=== PATIENT | male | born 1995 | race American Indian/Alaskan Native ===

== ENCOUNTER 2017-03-25 14:28 | Emergency (ER) | payer OTHER, MEDICAID ==
[2017-03-25 15:04] LABS: Basophils % (Auto) 0.6 % (0.0-1.8); Eosinophils % (Auto) 0.9 % (0.0-4.3); Hematocrit 48.9 % (35.5-45.6); Hemoglobin 16.3 gm/dl (11.8-15.2); Mean Corpuscular HGB Conc 33 % (32-34); Mean Corpuscular Hemoglobin 30 pg (28-32); Mean Corpuscular Volume 90 fl (84-94); Platelet Count 300 K/mm3 (140-440); Red Blood Count 5.46 M/mm3 (3.65-5.03); Red Cell Distribution Width 13.4 % (13.2-15.2); White Blood Count 6.4 K/mm3 (4.5-11.0)
[2017-03-25 15:06] LABS: Bilirubin,Urine NEG (Negative); Blood,Urine NEG (Negative); Ketones,Urine NEG (Negative); Leukocyte Esterase,Urine NEG (Negative); Mucus,Urine FEW /HPF; Nitrite,Urine NEG (Negative); Protein,Urine <15 mg/dL mg/dL (Negative); Urobilinogen,Urine < 2.0 mg/dL (<2.0)
[2017-03-25 15:08] LABS: WBC,Urine < 1.0 /HPF (0.0-6.0)
[2017-03-25 15:13] LABS: Anion Gap 24 mmol/L; BUN/Creatinine Ratio 11.81; Blood Urea Nitrogen 13 mg/dL (9-20); Calcium 9.7 mg/dL (8.4-10.2); Carbon Dioxide 23 mmol/L (22-30); Chloride 88.9 mmol/L (98-107); Potassium 4.7 mmol/L (3.6-5.0); Sodium 131 mmol/L (137-145)
[2017-03-25 15:16] LABS: Glucose 667 mg/dL (75-100)
[2017-03-25] MEDS ORDERED: NACL 0.9% 1000 ML 1,000 ML ONE (15:45)
[2017-03-25] MEDS ORDERED: NACL 0.9% 1000 ML 1,000 ML IV ONE (15:49)
[2017-03-25] MEDS ORDERED: LACTATED RINGERS 1,000 ML IV ONE ×3 (16:33→18:45)
--- NOTE | 2017-03-25 16:45 | Emergency Department Report ---
ED General Adult HPI - General Chief complaint: Hyperglycemia Stated complaint: DIABETIC Time Seen by Provider: 03/25/17 16:33 Source: patient Mode of arrival: Ambulatory Limitations: No Limitations - History of Present Illness Initial comments: Patient is a 21-year-old male past medical history of type 1 diabetes who presents with hyperglycemia. Patient states that he ran out of his Lantus insulin 1 month ago due to insurance issues. Patient is not having any nausea, vomiting, headache or vision changes. Patient reports that he was brought to the ER because he went to the PCP today and he is blood sugar was 458 and he was sent to the ER for further management. Patient denies having any medical complaints. - Related Data Allergies Allergy/AdvReac Type Severity Reaction Status Date / Time No Known Allergies Allergy Unverified 03/25/17 14:31 ED Review of Systems ROS: Stated complaint: DIABETIC Other details as noted in HPI Constitutional: denies: chills, fever Eyes: denies: eye pain, eye discharge, vision change ENT: denies: ear pain, throat pain Respiratory: denies: cough, shortness of breath, wheezing Cardiovascular: denies: chest pain, palpitations Endocrine: no symptoms reported Gastrointestinal: denies: abdominal pain, nausea, diarrhea Genitourinary: denies: urgency, dysuria Musculoskeletal: denies: back pain, joint swelling, arthralgia Skin: denies: rash, lesions Neurological: denies: headache, weakness, paresthesias Psychiatric: denies: anxiety, depression Hematological/Lymphatic: denies: easy bleeding, easy bruising ED Past Medical Hx - Past Medical History Previous Medical History?: Yes Hx Diabetes: Yes (Type 1) - Surgical History Past Surgical History?: No - Social History Smoking Status: Never Smoker Substance Use Type: Alcohol, Prescribed ED Physical Exam - General Limitations: No Limitations General appearance: alert, in no apparent distress - Head Head exam: Present: atraumatic, normocephalic - Eye Eye exam: Present: normal appearance - ENT ENT exam: Present: mucous membranes moist - Neck Neck exam: Present: normal inspection - Respiratory Respiratory exam: Present: normal lung sounds bilaterally. Absent: respiratory distress - Cardiovascular Cardiovascular Exam: Present: regular rate, normal rhythm. Absent: systolic murmur, diastolic murmur, rubs, gallop - GI/Abdominal GI/Abdominal exam: Present: soft, normal bowel sounds - Rectal Rectal exam: Present: deferred - Extremities Exam Extremities exam: Present: normal inspection - Back Exam Back exam: Present: normal inspection - Neurological Exam Neurological exam: Present: alert, oriented X3 - Psychiatric Psychiatric exam: Present: normal affect, normal mood - Skin Skin exam: Present: warm, dry, intact, normal color. Absent: rash ED Course Vital Signs 03/25/17 03/25/17 03/25/17 14:31 15:51 18:35 Temperature 98.2 F Pulse Rate 81 86 Respiratory 18 18 16 Rate Blood Pressure 122/79 Blood Pressure 120/79 [Left] O2 Sat by Pulse 100 100 99 Oximetry 03/25/17 03/25/17 03/25/17 19:13 19:20 19:35 Temperature 98.3 F Pulse Rate 66 Respiratory 16 Rate Blood Pressure Blood Pressure 113/62 [Left] O2 Sat by Pulse 100 100 100 Oximetry - Reevaluation(s) Reevaluation #1: 03/25/17 16:46 Patient is given IV fluids he denies having any nausea or vomiting. When corrected we'll send patient home. Reevaluation #2: 03/25/17 18:13 Patient's blood sugar is over 500 despite having 3 L of fluid will give patient 10 units of normal saline. Reevaluation #3: 03/25/17 20:03 Patient's blood sugars in the 200s patient has no medical complaints we'll send patient home for follow-up to control his diabetes. ED Medical Decision Making - Lab Data Result diagrams: 03/25/17 14:41 03/25/17 14:41 Laboratory Results - last 24 hr 03/25/17 03/25/17 03/25/17 14:41 14:41 14:41 WBC 6.4 RBC 5.46 H Hgb 16.3 H Hct 48.9 H MCV 90 MCH 30 MCHC 33 RDW 13.4 Plt Count 300 Lymph % (Auto) 29.1 [place] % (Auto) 6.1 Eos % (Auto) 0.9 Baso % (Auto) 0.6 Lymph # 1.9 [place] # 0.4 Eos # 0.1 Baso # 0.0 Seg Neutrophils % 63.3 Seg Neutrophils # 4.1 VBG pH 7.326 Sodium 131 L Potassium 4.7 Chloride 88.9 L Carbon Dioxide 23 Anion Gap 24 BUN 13 Creatinine 1.1 Estimated GFR > 60 BUN/Creatinine Ratio 11.81 Glucose 667 H* Calcium 9.7 Urine Color Urine Turbidity Urine pH Ur Specific [place] Urine Protein Urine Glucose (UA) Urine Ketones Urine Blood Urine Nitrite Urine Bilirubin Urine Urobilinogen Ur Leukocyte Esterase Urine WBC (Auto) Urine RBC (Auto) U Epithel Cells (Auto) Urine Mucus 03/25/17 14:42 WBC RBC Hgb Hct MCV MCH MCHC RDW Plt Count Lymph % (Auto) [place] % (Auto) Eos % (Auto) Baso % (Auto) Lymph # [place] # Eos # Baso # Seg Neutrophils % Seg Neutrophils # VBG pH Sodium Potassium Chloride Carbon Dioxide Anion Gap BUN Creatinine Estimated GFR BUN/Creatinine Ratio Glucose Calcium Urine Color Colorless Urine Turbidity Clear Urine pH 6.0 Ur Specific [place] 1.027 Urine Protein <15 mg/dl Urine Glucose (UA) >=500 Urine Ketones Neg Urine Blood Neg Urine Nitrite Neg Urine Bilirubin Neg Urine Urobilinogen < 2.0 Ur Leukocyte Esterase Neg Urine WBC (Auto) < 1.0 Urine RBC (Auto) 1.0 U Epithel Cells (Auto) < 1.0 Urine Mucus Few Laboratory Results - last 24 hr 03/25/17 03/25/17 03/25/17 14:41 14:41 14:41 WBC 6.4 RBC 5.46 H Hgb 16.3 H Hct 48.9 H MCV 90 MCH 30 MCHC 33 RDW 13.4 Plt Count 300 Lymph % (Auto) 29.1 [place] % (Auto) 6.1 Eos % (Auto) 0.9 Baso % (Auto) 0.6 Lymph # 1.9 [place] # 0.4 Eos # 0.1 Baso # 0.0 Seg Neutrophils % 63.3 Seg Neutrophils # 4.1 VBG pH 7.326 Sodium 131 L Potassium 4.7 Chloride 88.9 L Carbon Dioxide 23 Anion Gap 24 BUN 13 Creatinine 1.1 Estimated GFR > 60 BUN/Creatinine Ratio 11.81 Glucose 667 H* POC Glucose Calcium 9.7 Urine Color Urine Turbidity Urine pH Ur Specific [place] Urine Protein Urine Glucose (UA) Urine Ketones Urine Blood Urine Nitrite Urine Bilirubin Urine Urobilinogen Ur Leukocyte Esterase Urine WBC (Auto) Urine RBC (Auto) U Epithel Cells (Auto) Urine Mucus 03/25/17 03/25/17 03/25/17 14:42 16:56 18:09 WBC RBC Hgb Hct MCV MCH MCHC RDW Plt Count Lymph % (Auto) [place] % (Auto) Eos % (Auto) Baso % (Auto) Lymph # [place] # Eos # Baso # Seg Neutrophils % Seg Neutrophils # VBG pH Sodium Potassium Chloride Carbon Dioxide Anion Gap BUN Creatinine Estimated GFR BUN/Creatinine Ratio Glucose POC Glucose > 500 H > 500 H Calcium Urine Color Colorless Urine Turbidity Clear Urine pH 6.0 Ur Specific [place] 1.027 Urine Protein <15 mg/dl Urine Glucose (UA) >=500 Urine Ketones Neg Urine Blood Neg Urine Nitrite Neg Urine Bilirubin Neg Urine Urobilinogen < 2.0 Ur Leukocyte Esterase Neg Urine WBC (Auto) < 1.0 Urine RBC (Auto) 1.0 U Epithel Cells (Auto) < 1.0 Urine Mucus Few 03/25/17 03/25/17 18:39 19:56 WBC RBC Hgb Hct MCV MCH MCHC RDW Plt Count Lymph % (Auto) [place] % (Auto) Eos % (Auto) Baso % (Auto) Lymph # [place] # Eos # Baso # Seg Neutrophils % Seg Neutrophils # VBG pH Sodium Potassium Chloride Carbon Dioxide Anion Gap BUN Creatinine Estimated GFR BUN/Creatinine Ratio Glucose POC Glucose 402 H 230 H Calcium Urine Color Urine Turbidity Urine pH Ur Specific [place] Urine Protein Urine Glucose (UA) Urine Ketones Urine Blood Urine Nitrite Urine Bilirubin Urine Urobilinogen Ur Leukocyte Esterase Urine WBC (Auto) Urine RBC (Auto) U Epithel Cells (Auto) Urine Mucus - Medical Decision Making Chief medical diagnosis: Hyperglycemia Differential diagnosis: DKA, HONK, hyperkalemia CBC, CMP, fluids, [id number] glucose, VBG will reevaluate patient. Due to patient's non-acidotic state and reasonable blood sugar with no medical complaints patient has hyperglycemia will get fluids and I will make sure hyperglycemia is well-controlled and will send patient home. Critical care attestation.: If time is entered above; I have spent that time in minutes in the direct care of this critically ill patient, excluding procedure time. ED Disposition Clinical Impression: Hyperglycemia due to type 1 diabetes mellitus Disposition: DC-01 TO HOME OR SELFCARE Is pt being admited?: No Does the pt Need Aspirin: No Condition: Stable Instructions: Diabetic Hyperglycemia (ED) Referrals: PRIMARY CAREMD [Primary Care Provider] - 3-5 Days ELIZABETH GAGNON MD [Staff Physician] - 3-5 Days Time of Disposition: 20:02
[2017-03-25 20:11] VITALS: BP 115/90
== END 2017-03-25 20:33 | disposition home or self-care (01) ==
LOC: ED 14:28
DX: E10.65 Type 1 diabetes mellitus with hyperglycemia (principal)
CPT/HCPCS: 36415; 80048; 81001; 82805; 82962; 85025; 96361; 96374; 99284; J7030; J7120; J1815

== ENCOUNTER 2017-12-06 12:30 | Inpatient (IN) | payer MEDICAID, OTHER ==
[2017-12-06] MEDS ORDERED: ZOFRAN IV ONE ×2 (13:30→15:50)
[2017-12-06] MEDS ORDERED: NACL 0.9% 1000 ML 1,000 ML IV ONE ×3 (13:30→21:27)
[2017-12-06] MEDS ORDERED: TORADOL IV ONE (14:25)
[2017-12-06] MEDS ORDERED: ATIVAN IV ONE (14:26)
--- NOTE | 2017-12-06 14:30 | Emergency Department Report ---
HPI - General Chief Complaint: Abdominal Pain Time Seen by Provider: 12/06/17 13:23 - HPI HPI: The patient is a 21-year-old male who presents for evaluation of abdominal pain. The patient reports upper abdominal pain, crampy in quality, moderate in severity, constant since awakening this morning, 3-4 hours ago. He also reports nausea and multiple episodes of nonbilious, nonbloody emesis. He shares that he consumed a significant amount of alcohol last night. The patient denies fever, chills, night sweats, diarrhea, blood in the stool, dark tarry stool, dysuria, hematuria, flank pain, genital discharge, inability to pass flatus. ED Past Medical Hx - Past Medical History Hx Diabetes: Yes (Type 1) - Social History Smoking Status: Never Smoker Substance Use Type: Alcohol - Medications Home Medications: Home Medications Medication Instructions Recorded Confirmed Last Taken Type Insulin Glargine [Lantus] 24 units SQ QHS #30 vial 03/25/17 Unknown Rx Insulin Glulisine [Apidra] 10 units SQ AC 28 Days units 03/25/17 Unknown Rx ED Review of Systems ROS: Stated complaint: NAUSEA/VOMITING Other details as noted in HPI Constitutional: denies: fever ENT: denies: throat or neck pain Respiratory: denies: cough, shortness of breath Cardiovascular: denies: chest pain Endocrine: denies unexplained weight loss or gain Gastrointestinal: denies: abdominal pain, nausea Genitourinary: denies: dysuria Musculoskeletal: denies: leg swelling Skin: denies: rash Neurological: denies: headache Hematological/Lymphatic: denies: easy bleeding or easy bruising Psych: denies sadness or hopelessness Physical Exam - Physical Exam Vital Signs: Vital Signs 12/06/17 12/06/17 12:33 13:21 Temperature 98 F Pulse Rate 105 H Respiratory 18 16 Rate Blood Pressure 100/58 O2 Sat by Pulse 100 Oximetry Physical Exam: General: well-nourished, well-developed, no acute distress Head: Normocephalic, atraumatic Eyes: normal sclera ENT: Mucous membranes are pale and dry Neck: trachea midline, neck supple, No neck stiffness, no cervical adenopathy Respiratory: Breath sounds equal bilaterally, no wheezing, rales, or rhonchi Cardio: S1 and S2 present, no murmurs, rubs, gallops, capillary refill is delayed Abdomen: Normoactive bowel sounds, soft abdomen, left upper quadrant epigastric tenderness to palpation present, no rigidity, no guarding or rebound tenderness Musc: No pitting edema Skin: No rash Neuro: no facial drooping, normal speech Psych: Normal affect ED Course Vital Signs 12/06/17 12/06/17 12:33 13:21 Temperature 98 F Pulse Rate 105 H Respiratory 18 16 Rate Blood Pressure 100/58 O2 Sat by Pulse 100 Oximetry ED Medical Decision Making - Lab Data Result diagrams: 12/06/17 14:42 12/06/17 15:01 - Medical Decision Making The patient was seen and examined by myself. The patient is placed on a school lunch monitor and continuous pulse ox. On initial evaluation, the patient was found to be in no distress. Evaluation orders are placed. IV access is established and the patient is given 1 L normal saline fluid bolus and Zofran for nausea, and IV analgesic for pain. Lab results revealed elevated blood glucose of 500, increased anion gap of 40, increased potassium of 5.7, and low bicarbonate, consistent with metabolic acidosis secondary to diabetic ketoacidosis. The patient is given additional normal saline fluid boluses and IV insulin infusion for treatment of his DKA and elevated potassium level. Dr. Villagran, the physician on-call for the hospitalist service was contacted. He agreed to admit the patient for further treatment and close monitoring. The ED admit order was placed. The patient was admitted in guarded condition. Critical care attestation.: If time is entered above; I have spent that time in minutes in the direct care of this critically ill patient, excluding procedure time. ED Disposition Clinical Impression: Dehydration, Acute hyperkalemia, Nausea and vomiting in adult, Acute epigastric pain DKA (diabetic ketoacidoses) Qualifiers: Diabetes mellitus type: type 1 Diabetes mellitus complication detail: without coma Qualified Code(s): E10.10 - Type 1 diabetes mellitus with ketoacidosis without coma Disposition: -01 TO HOME OR SELFCARE Is pt being admited?: No Does the pt Need Aspirin: No Condition: Serious Instructions: Diabetic Ketoacidosis (ED) Referrals: PRIMARY CARE, [Primary Care Provider] - 3-5 Days Time of Disposition: 15:51
[2017-12-06 14:53] LABS: Basophils # (Auto) 0.1 K/mm3 (0.0-0.1); Basophils % (Auto) 0.6 % (0.0-1.8); Hematocrit 55.6 % (35.5-45.6); Hemoglobin 18.7 gm/dl (11.8-15.2); Lymphocytes # (Auto) 1.4 K/mm3 (1.2-5.4); Lymphocytes % (Auto) 13.7 % (13.4-35.0); Mean Corpuscular HGB Conc 34 % (32-34); Mean Corpuscular Hemoglobin 30 pg (28-32); Mean Corpuscular Volume 88 fl (84-94); Monocytes # (Auto) 0.3 K/mm3 (0.0-0.8); Monocytes % (Auto) 3.2 % (0.0-7.3); Platelet Count 375 K/mm3 (140-440); Red Blood Count 6.32 M/mm3 (3.65-5.03); Red Cell Distribution Width 13.8 % (13.2-15.2)
[2017-12-06 14:56] LABS: Bilirubin,Urine NEG (Negative); Blood,Urine SM (Negative); Color,Urine Straw (Yellow); Mucus,Urine FEW /HPF; Urobilinogen,Urine < 2.0 mg/dL (<2.0); WBC,Urine < 1.0 /HPF (0.0-6.0)
[2017-12-06 14:57] LABS: RBC,Urine < 1.0 /HPF (0.0-6.0)
[2017-12-06 15:40] LABS: Alanine Aminotransferase 19 units/L (7-56); Albumin 4.7 g/dL (3.9-5); BUN/Creatinine Ratio 18; Blood Urea Nitrogen 27 mg/dL (9-20); Calcium 10.4 mg/dL (8.4-10.2); Hemolysis Index 34; Lipase 15 units/L (13-60)
[2017-12-06] MEDS ORDERED: D50W (25GM) Syringe IV PRN ×2 (15:46→21:27)
[2017-12-06] MEDS ORDERED: HumuLIN R IV ONE (15:47)
[2017-12-06] MEDS ORDERED: HumuLIN R 100 UNITS in NACL 0.9% 99 ML IV SCH ×2 (16:00→22:00)
[2017-12-06] MEDS ORDERED: D5W/0.45% NACL/KCL 20 MEQ 20 MEQ/1,000 ML BAG IV SCH (16:00)
[2017-12-06] MEDS ORDERED: SODIUM BICARBONATE IV ONE (17:00)
[2017-12-06] MEDS ORDERED: NACL 0.9% 1000 ML 1,000 ML ONE (19:16)
[2017-12-06] MEDS ORDERED: MORPHINE IV PRN (21:24)
[2017-12-06] MEDS ORDERED: SODIUM CHLORIDE FLUSH SYRINGE 10 ML IV PRN (21:24)
[2017-12-06] MEDS ORDERED: ZOFRAN IV PRN (21:24)
[2017-12-06] MEDS ORDERED: TYLENOL PO PRN (21:24)
[2017-12-06] MEDS ORDERED: PERCOCET 5/325 PO PRN (21:24)
--- NOTE | 2017-12-06 21:24 | History and Physical Report ---
History of Present Illness Date of examination: 12/06/17 Date of admission: 12/06/2017 Chief complaint: Chief complaint: Feeling weak and nauseous for the last 2 days. Vomited 3-4 times. 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 Patient had a lot of alcohol last night. Patient is also noncompliant because his prescribed Lantus which is very expensive. Also on it. Her vision is also expensive. Patient wants a cheaper alternative. No fever no chills. Slight shortness of breath present. No seizures. - Past Medical History Hx Diabetes: Yes (Type 1) - Social History Smoking Status: Never Smoker Substance Use Type: Alcohol - Medications Home Medications: Home Medications Medication Instructions Recorded Confirmed Last Taken Type Insulin Glargine [Lantus] 24 units SQ QHS #30 vial 03/25/17 Unknown Rx Insulin Glulisine [Apidra] 10 units SQ AC 28 Days units 03/25/17 Unknown Rx Review of Systems ROS: Stated complaint: NAUSEA/VOMITING Other details as noted in HPI Constitutional: denies: fever ENT: denies: throat or neck pain Respiratory: denies: cough, shortness of breath Cardiovascular: denies: chest pain Endocrine: denies unexplained weight loss or gain Gastrointestinal: denies: abdominal pain, nausea Genitourinary: denies: dysuria Musculoskeletal: denies: leg swelling Skin: denies: rash Neurological: denies: headache Hematological/Lymphatic: denies: easy bleeding or easy bruising Psych: denies sadness or hopelessness Medications and Allergies Allergies Allergy/AdvReac Type Severity Reaction Status Date / Time No Known Allergies Allergy Unverified 03/25/17 14:31 Home Medications Medication Instructions Recorded Confirmed Last Taken Type Insulin Glargine [Lantus] 24 units SQ QHS #30 vial 03/25/17 12/06/17 Unknown Rx Insulin Glulisine [Apidra] 10 units SQ AC 28 Days units 03/25/17 12/06/17 Unknown Rx Active Meds: Active Medications Dextrose (D50w (25gm) Syringe) 0 ml IV PRN PRN PRN Reason: Hypoglycemia Potassium Chloride/Dextrose/Sod Cl (D5w/0.45% Nacl/Kcl 20 Meq) 20 meq in 1,000 mls @ 125 mls/hr IV DIRECT CASIMIRO Insulin Human Regular 100 (units/ Sodium Chloride) 100 mls @ 1 mls/hr IV TITR CASIMIRO; Protocol Last Titration: 12/06/17 20:55 Dose: 7 units/hr, 7 mls/hr Exam - Physical Exam Narrative exam: Lying in bed comfortably - Constitutional Vitals: Temp Pulse Resp BP Pulse Ox 98.3 F 86 16 108/63 99 12/06/17 16:30 12/06/17 20:30 12/06/17 20:30 12/06/17 20:30 12/06/17 20:30 General appearance: Present: no acute distress, well-nourished - EENT Eyes: Present: PERRL ENT: hearing intact, clear oral mucosa - Neck Neck: Present: supple, normal ROM - Respiratory Respiratory effort: normal Respiratory: bilateral: CTA - Cardiovascular Heart rate: 90 Rhythm: regular Heart Sounds: Present: S1 & S2. Absent: rub, click - Extremities Extremities: no ischemia, pulses intact, pulses symmetrical, No edema Peripheral Pulses: within normal limits - Abdominal General gastrointestinal: Present: soft, non-tender, non-distended, normal bowel sounds Male genitourinary: Present: normal - Rectal Rectal Exam: deferred - Integumentary Integumentary: Present: clear, warm, dry - Musculoskeletal Musculoskeletal: gait normal, strength equal bilaterally - Psychiatric Psychiatric: appropriate mood/affect, intact judgment & insight - Neurologic Neurologic: CNII-XII intact, moves all extremities - Allied Health Allied health notes reviewed: nursing, case management Results - Labs CBC & Chem 7: 12/06/17 14:42 12/06/17 15:01 Labs: Laboratory Last Values WBC 10.4 K/mm3 (4.5-11.0) 12/06/17 14:42 RBC 6.32 M/mm3 (3.65-5.03) H 12/06/17 14:42 Hgb 18.7 gm/dl (11.8-15.2) H 12/06/17 14:42 Hct 55.6 % (35.5-45.6) H 12/06/17 14:42 MCV 88 fl (84-94) 12/06/17 14:42 MCH 30 pg (28-32) 12/06/17 14:42 MCHC 34 % (32-34) 12/06/17 14:42 RDW 13.8 % (13.2-15.2) 12/06/17 14:42 Plt Count 375 K/mm3 (140-440) 12/06/17 14:42 Lymph % (Auto) 13.7 % (13.4-35.0) 12/06/17 14:42 [place] % (Auto) 3.2 % (0.0-7.3) 12/06/17 14:42 Eos % (Auto) 0.0 % (0.0-4.3) 12/06/17 14:42 Baso % (Auto) 0.6 % (0.0-1.8) 12/06/17 14:42 Lymph # 1.4 K/mm3 (1.2-5.4) 12/06/17 14:42 [place] # 0.3 K/mm3 (0.0-0.8) 12/06/17 14:42 Eos # 0.0 K/mm3 (0.0-0.4) 12/06/17 14:42 Baso # 0.1 K/mm3 (0.0-0.1) 12/06/17 14:42 Seg Neutrophils % 82.5 % (40.0-70.0) H 12/06/17 14:42 Seg Neutrophils # 8.6 K/mm3 (1.8-7.7) H 12/06/17 14:42 VBG pH 7.102 (7.320-7.420) L* 12/06/17 15:53 Sodium 136 mmol/L (137-145) L 12/06/17 15:01 Potassium 5.7 mmol/L (3.6-5.0) H 12/06/17 15:01 Chloride 86.0 mmol/L (98-107) L 12/06/17 15:01 Carbon Dioxide 12 mmol/L (22-30) L 12/06/17 15:01 Anion Gap 44 mmol/L 12/06/17 15:01 BUN 27 mg/dL (9-20) H 12/06/17 15:01 Creatinine 1.5 mg/dL (0.8-1.5) 12/06/17 15:01 Estimated GFR > 60 ml/min 12/06/17 15:01 BUN/Creatinine Ratio 18 % 12/06/17 15:01 Glucose 534 mg/dL (75-100) H* 12/06/17 15:01 POC Glucose 294 (70-105) H 12/06/17 19:56 Calcium 10.4 mg/dL (8.4-10.2) H 12/06/17 15:01 Phosphorus 8.10 mg/dL (2.5-4.5) H 12/06/17 15:53 Magnesium 2.60 mg/dL (1.7-2.3) H 12/06/17 15:53 Total Bilirubin 0.60 mg/dL (0.1-1.2) 12/06/17 15:01 AST 19 units/L (5-40) 12/06/17 15:01 ALT 19 units/L (7-56) 12/06/17 15:01 Alkaline Phosphatase 100 units/L (35-129) 12/06/17 15:01 Total Protein 8.5 g/dL (6.3-8.2) H 12/06/17 15:01 Albumin 4.7 g/dL (3.9-5) 12/06/17 15:01 Albumin/Globulin Ratio 1.2 % 12/06/17 15:01 Lipase 15 units/L (13-60) 12/06/17 15:01 Urine Color Straw (Yellow) 12/06/17 14:42 Urine Turbidity Clear (Clear) 12/06/17 14:42 Urine pH 5.0 (5.0-7.0) 12/06/17 14:42 Ur Specific [place] 1.025 (1.003-1.030) 12/06/17 14:42 Urine Protein 30 mg/dl mg/dL (Negative) 12/06/17 14:42 Urine Glucose (UA) >=500 mg/dL (Negative) 12/06/17 14:42 Urine Ketones 80 mg/dL (Negative) 12/06/17 14:42 Urine Blood Sm (Negative) 12/06/17 14:42 Urine Nitrite Neg (Negative) 12/06/17 14:42 Urine Bilirubin Neg (Negative) 12/06/17 14:42 Urine Urobilinogen < 2.0 mg/dL (<2.0) 12/06/17 14:42 Ur Leukocyte Esterase Neg (Negative) 12/06/17 14:42 Urine WBC (Auto) < 1.0 /HPF (0.0-6.0) 12/06/17 14:42 Urine RBC (Auto) < 1.0 /HPF (0.0-6.0) 12/06/17 14:42 Urine Mucus Few /HPF 12/06/17 14:42 Short CBC 12/06/17 Range/Units 14:42 WBC 10.4 (4.5-11.0) K/mm3 Hgb 18.7 H (11.8-15.2) gm/dl Hct 55.6 H (35.5-45.6) % Plt Count 375 (140-440) K/mm3 BMP 12/06/17 15:01 Sodium 136 L Potassium 5.7 H Chloride 86.0 L Carbon Dioxide 12 L BUN 27 H Creatinine 1.5 Glucose 534 H* Calcium 10.4 H Liver Function 12/06/17 Range/Units 15:01 Total Bilirubin 0.60 (0.1-1.2) mg/dL AST 19 (5-40) units/L ALT 19 (7-56) units/L Alkaline Phosphatase 100 (35-129) units/L Albumin 4.7 (3.9-5) g/dL Urine 12/06/17 Range/Units 14:42 Urine Color Straw (Yellow) Urine pH 5.0 (5.0-7.0) Ur Specific [place] 1.025 (1.003-1.030) Urine Protein 30 mg/dl (Negative) mg/dL Urine Glucose (UA) >=500 (Negative) mg/dL Assessment and Plan Assessment and plan: The high probability of a clinically significant, sudden or life threatening deterioration of the [Pulmonary, cadiac, renal] system(s) required my full and direct attention, intervention and personal management. The aggregate critical care time was [35] minutes. This time is in addition to time spent performing reported procedures but includes the following: [x] Data Review and interpretation [x] Patient assessment and monitoring of vital signs [x] Documentation [x] Medication orders and management Advance Directives: Yes VTE prophylaxis?: Chemical Plan of care discussed with patient/family: Yes - Patient Problems (1) DKA (diabetic ketoacidoses) Current Visit: Yes Status: Acute Qualifiers: Diabetes mellitus type: type 1 Diabetes mellitus complication detail: without coma Qualified Code(s): E10.10 - Type 1 diabetes mellitus with ketoacidosis without coma Plan to address problem: DKA protocol initiated. Patient started on IV insulin. Patient to be switched to NovoLog 70/30 which is available as RELION in [facility] and is about $25 per Vial. Patient did not know that there is Relion and available in [facility]. Patient is noncompliant because of the expense of Lantus and Apidra. Patient to be tried on NovoLog 7030 twice a day and NovoLog before lunch. Check hemoglobin A1c IV fluids for now (2) Acute epigastric pain Current Visit: Yes Status: Acute Plan to address problem: Secondary to gastritis and retching and alcohol IV Protonix initiated (3) Acute hyperkalemia Current Visit: Yes Status: Acute Plan to address problem: Should correct with IV insulin (4) Hyponatremia Current Visit: Yes Status: Acute Plan to address problem: Mild- should correct with lowering of the blood glucose levels (5) DVT prophylaxis Current Visit: Yes Status: Acute Plan to address problem: Heparin subcutaneously And GI prophylaxis with protonix
[2017-12-06] MEDS ORDERED: PROTONIX IV SCH (22:00)
[2017-12-06] MEDS: KCL 10MEQ/100ML 10 MEQ/100 ML BAG IV SCH ×4 (22:02→22:55)
[2017-12-06 22:07] LABS: BUN/Creatinine Ratio 21; Blood Urea Nitrogen 25 mg/dL (9-20); Calcium 7.9 mg/dL (8.4-10.2); Hemolysis Index 4
[2017-12-06] MEDS: KCL 20MEQ/100ML 20 MEQ/100 ML BAG IV SCH ×4 (22:12→22:56)
[2017-12-06] MEDS: SODIUM CHLORIDE FLUSH SYRINGE 10 ML IV SCH (22:12)
[2017-12-06] MEDS: HEPARIN SUB-Q SCH (22:17)
[2017-12-07 00:16] LABS: BUN/Creatinine Ratio 22; Blood Urea Nitrogen 24 mg/dL (9-20); Calcium 7.7 mg/dL (8.4-10.2); Hemolysis Index 13
[2017-12-07] MEDS ORDERED: NACL 0.9% 1000 ML 1,000 ML IV SCH (02:00)
[2017-12-07 04:17] LABS: Basophils # (Auto) 0.1 K/mm3 (0.0-0.1); Basophils % (Auto) 0.6 % (0.0-1.8); Eosinophils % (Auto) 0.3 % (0.0-4.3); Hematocrit 38.7 % (35.5-45.6); Hemoglobin 13.7 gm/dl (11.8-15.2); Lymphocytes # (Auto) 3.9 K/mm3 (1.2-5.4); Lymphocytes % (Auto) 27.5 % (13.4-35.0); Mean Corpuscular HGB Conc 36 % (32-34); Mean Corpuscular Hemoglobin 30 pg (28-32); Mean Corpuscular Volume 85 fl (84-94); Monocytes # (Auto) 1.4 K/mm3 (0.0-0.8); Monocytes % (Auto) 9.7 % (0.0-7.3); Platelet Count 297 K/mm3 (140-440); Red Blood Count 4.56 M/mm3 (3.65-5.03); Red Cell Distribution Width 13.2 % (13.2-15.2)
[2017-12-07 04:48] LABS: Alanine Aminotransferase 12 units/L (7-56); Albumin 3.3 g/dL (3.9-5); BUN/Creatinine Ratio 19; Blood Urea Nitrogen 21 mg/dL (9-20); Calcium 7.9 mg/dL (8.4-10.2); Hemolysis Index 6
--- NOTE | 2017-12-07 07:54 | Progress Note ---
Assessment and Plan Assessment and plan: Diabetic ketoacidosis. Blood glucose was 534 and CO2 was 12 on admission Blood glucose now normal, anion gap closed. Will transfer to med floor. Consistent carb diet, accucheck Q ac and hs, Start Humulin 70/30 bid. Titrate to control Hyperkalemia. Now resolved Hyponatremia. Monitor serial BMP Gastritis with epigastric pain. On Protonix bid DVT prophylaxis with Heparin subcut Full code status. History Interval history: Feels better less weakness nausea vomiting Hospitalist Physical - Physical exam Narrative exam: Gen appearance: Not in acute distress, lying in bed, HEENT:Normocephalic, atraumatic Neck:supple, no JVD Lungs: Clear to auscultation bilaterally, no crackles , no wheeze Heart: S1 and S2 regular, no murmurs, rubs or gallop Abdomen: soft, mild epigastric tender, no rebound,r, non distended, normal bowel sounds Ext: No edema, no clubbing, no cyanosis. Neuro: Awake, alert, oriented x 3. Moves all ext, no focal signs Psych:Normal mood - Constitutional Vitals: Temp Pulse Resp BP Pulse Ox 98.1 F 62 17 105/59 98 12/07/17 07:36 12/07/17 07:11 12/07/17 07:11 12/07/17 07:11 12/07/17 07:11 General appearance: Present: no acute distress, obese Results - Labs CBC & Chem 7: 12/07/17 03:51 12/07/17 09:47 Labs: Laboratory Last Values WBC 14.1 K/mm3 (4.5-11.0) H 12/07/17 03:51 RBC 4.56 M/mm3 (3.65-5.03) 12/07/17 03:51 Hgb 13.7 gm/dl (11.8-15.2) D 12/07/17 03:51 Hct 38.7 % (35.5-45.6) D 12/07/17 03:51 MCV 85 fl (84-94) 12/07/17 03:51 MCH 30 pg (28-32) 12/07/17 03:51 MCHC 36 % (32-34) H 12/07/17 03:51 RDW 13.2 % (13.2-15.2) 12/07/17 03:51 Plt Count 297 K/mm3 (140-440) 12/07/17 03:51 Lymph % (Auto) 27.5 % (13.4-35.0) 12/07/17 03:51 Tripp % (Auto) 9.7 % (0.0-7.3) H 12/07/17 03:51 Eos % (Auto) 0.3 % (0.0-4.3) 12/07/17 03:51 Baso % (Auto) 0.6 % (0.0-1.8) 12/07/17 03:51 Lymph # 3.9 K/mm3 (1.2-5.4) 12/07/17 03:51 Tripp # 1.4 K/mm3 (0.0-0.8) H 12/07/17 03:51 Eos # 0.0 K/mm3 (0.0-0.4) 12/07/17 03:51 Baso # 0.1 K/mm3 (0.0-0.1) 12/07/17 03:51 Seg Neutrophils % 61.9 % (40.0-70.0) 12/07/17 03:51 Seg Neutrophils # 8.7 K/mm3 (1.8-7.7) H 12/07/17 03:51 VBG pH 7.102 (7.320-7.420) L* 12/06/17 15:53 Sodium 133 mmol/L (137-145) L 12/07/17 03:51 Potassium 3.5 mmol/L (3.6-5.0) L 12/07/17 03:51 Chloride 98.7 mmol/L (98-107) 12/07/17 03:51 Carbon Dioxide 23 mmol/L (22-30) 12/07/17 03:51 Anion Gap 15 mmol/L 12/07/17 03:51 BUN 21 mg/dL (9-20) H 12/07/17 03:51 Creatinine 1.1 mg/dL (0.8-1.5) 12/07/17 03:51 Estimated GFR > 60 ml/min 12/07/17 03:51 BUN/Creatinine Ratio 19 % 12/07/17 03:51 Glucose 131 mg/dL (75-100) H 12/07/17 03:51 POC Glucose 91 (70-105) 12/07/17 05:12 Hemoglobin A1c 13.3 % (4-6) H 12/06/17 14:42 Calcium 7.9 mg/dL (8.4-10.2) L 12/07/17 03:51 Phosphorus 3.00 mg/dL (2.5-4.5) D 12/06/17 21:36 Magnesium 2.00 mg/dL (1.7-2.3) 12/06/17 21:36 Total Bilirubin 0.50 mg/dL (0.1-1.2) 12/07/17 03:51 AST 11 units/L (5-40) 12/07/17 03:51 ALT 12 units/L (7-56) 12/07/17 03:51 Alkaline Phosphatase 64 units/L (35-129) 12/07/17 03:51 Total Protein 5.2 g/dL (6.3-8.2) L D 12/07/17 03:51 Albumin 3.3 g/dL (3.9-5) L 12/07/17 03:51 Albumin/Globulin Ratio 1.7 % 12/07/17 03:51 Lipase 15 units/L (13-60) 12/06/17 15:01 Urine Color Straw (Yellow) 12/06/17 14:42 Urine Turbidity Clear (Clear) 12/06/17 14:42 Urine pH 5.0 (5.0-7.0) 12/06/17 14:42 Ur Specific [place] 1.025 (1.003-1.030) 12/06/17 14:42 Urine Protein 30 mg/dl mg/dL (Negative) 12/06/17 14:42 Urine Glucose (UA) >=500 mg/dL (Negative) 12/06/17 14:42 Urine Ketones 80 mg/dL (Negative) 12/06/17 14:42 Urine Blood Sm (Negative) 12/06/17 14:42 Urine Nitrite Neg (Negative) 12/06/17 14:42 Urine Bilirubin Neg (Negative) 12/06/17 14:42 Urine Urobilinogen < 2.0 mg/dL (<2.0) 12/06/17 14:42 Ur Leukocyte Esterase Neg (Negative) 12/06/17 14:42 Urine WBC (Auto) < 1.0 /HPF (0.0-6.0) 12/06/17 14:42 Urine RBC (Auto) < 1.0 /HPF (0.0-6.0) 12/06/17 14:42 Urine Mucus Few /HPF 12/06/17 14:42
[2017-12-07] MEDS: KCL 10MEQ/100ML 10 MEQ/100 ML BAG IV SCH ×3 (07:57→07:59)
[2017-12-07] MEDS: KCL 20MEQ/100ML 20 MEQ/100 ML BAG IV SCH (07:58)
[2017-12-07] MEDS: PROTONIX PO SCH ×2 (09:34→22:10)
[2017-12-07] MEDS: K-DUR PO SCH ×2 (09:34→13:40)
[2017-12-07] MEDS: HEPARIN SUB-Q SCH ×2 (09:34→22:10)
[2017-12-07] MEDS: SODIUM CHLORIDE FLUSH SYRINGE 10 ML IV SCH ×2 (09:39→22:11)
[2017-12-07 10:38] LABS: BUN/Creatinine Ratio 19; Blood Urea Nitrogen 21 mg/dL (9-20); Calcium 7.8 mg/dL (8.4-10.2); Hemolysis Index 9
[2017-12-07] MEDS ORDERED: D50W (25GM) Syringe IV PRN (10:56)
--- NOTE | 2017-12-07 11:21 | Consultation ---
History of Present Illness Consult date: 12/07/17 Requesting physician: SANTIAGO GARCIA Reason for consult: other (Critical care consult for DKA) History of present illness: 21 yo with suboptimal insulin compliance admitted with N/V, abd pain, DKA after consuming large amount of EtOH prior these symptoms. He is back to normal with resolution of all of these symptoms as of this AM. Able to tolerate breakfast. No further N/V. No fevers, chills, chest pain, SOB. Active Medications Acetaminophen (Tylenol) 650 mg PO Q4H PRN PRN Reason: Pain MILD(1-3)/Fever >100.5/MENDEZ Dextrose (D50w (25gm) Syringe) 50 ml IV PRN PRN PRN Reason: Hypoglycemia Heparin Sodium (Porcine) (Heparin) 5,000 unit SUB-Q Q12HR [facility] Last Admin: 12/07/17 09:34 Dose: 5,000 unit Sodium Chloride (Nacl 0.9% 1000 Ml) 1,000 mls @ 125 mls/hr IV DIRECT CASIMIRO Insulin Human Isoph/Insulin Regular (Humulin 70/30) 16 unit SUB-Q BIDDIAB [facility] Last Admin: 12/07/17 09:33 Dose: 16 unit Insulin Human Regular (Humulin R) 0 units SUB-Q ACHS [facility]; Protocol Last Admin: 12/07/17 13:35 Dose: Not Given Morphine Sulfate (Morphine) 2 mg IV Q4H PRN PRN Reason: Pain, Moderate (4-6) Ondansetron HCl (Zofran) 4 mg IV Q8H PRN PRN Reason: Nausea And Vomiting Oxycodone/Acetaminophen (Percocet 5/325) 1 tab PO Q6H PRN PRN Reason: Pain, Moderate (4-6) Pantoprazole Sodium (Protonix) 40 mg PO BID [facility] Last Admin: 12/07/17 09:34 Dose: 40 mg Sodium Chloride (Sodium Chloride Flush Syringe 10 Ml) 10 ml IV BID [facility] Last Admin: 12/07/17 09:39 Dose: 10 ml Sodium Chloride (Sodium Chloride Flush Syringe 10 Ml) 10 ml IV PRN PRN PRN Reason: LINE FLUSH Past History Past Medical History: diabetes Social history: alcohol abuse, full code. denies: smoking, prescription drug abuse, IV drug use Family history: other (No pulm issues reported) Medications and Allergies Allergies Allergy/AdvReac Type Severity Reaction Status Date / Time No Known Allergies Allergy Unverified 03/25/17 14:31 Home Medications Medication Instructions Recorded Confirmed Last Taken Type Insulin Glargine [Lantus] 24 units SQ QHS #30 vial 03/25/17 12/06/17 Unknown Rx Insulin Glulisine [Apidra] 10 units SQ AC 28 Days units 03/25/17 12/06/17 Unknown Rx Active Meds: Active Medications Acetaminophen (Tylenol) 650 mg PO Q4H PRN PRN Reason: Pain MILD(1-3)/Fever >100.5/MENDEZ Dextrose (D50w (25gm) Syringe) 0 ml IV PRN PRN PRN Reason: Hypoglycemia Dextrose (D50w (25gm) Syringe) 50 ml IV PRN PRN PRN Reason: Hypoglycemia Heparin Sodium (Porcine) (Heparin) 5,000 unit SUB-Q Q12HR [facility] Last Admin: 12/07/17 09:34 Dose: 5,000 unit Sodium Chloride (Nacl 0.9% 1000 Ml) 1,000 mls @ 100 mls/hr IV DIRECT [facility] Insulin Human Isoph/Insulin Regular (Humulin 70/30) 16 unit SUB-Q BIDDIAB [facility] Last Admin: 12/07/17 09:33 Dose: 16 unit Insulin Human Regular (Humulin R) 0 units SUB-Q ACHS [facility]; Protocol Morphine Sulfate (Morphine) 2 mg IV Q4H PRN PRN Reason: Pain, Moderate (4-6) Ondansetron HCl (Zofran) 4 mg IV Q8H PRN PRN Reason: Nausea And Vomiting Oxycodone/Acetaminophen (Percocet 5/325) 1 tab PO Q6H PRN PRN Reason: Pain, Moderate (4-6) Pantoprazole Sodium (Protonix) 40 mg PO BID [facility] Last Admin: 12/07/17 09:34 Dose: 40 mg Potassium Chloride (K-Dur) 40 meq PO Q4H [facility] Stop: 12/07/17 13:01 Last Admin: 12/07/17 09:34 Dose: 40 meq Sodium Chloride (Sodium Chloride Flush Syringe 10 Ml) 10 ml IV BID [facility] Last Admin: 12/07/17 09:39 Dose: 10 ml Sodium Chloride (Sodium Chloride Flush Syringe 10 Ml) 10 ml IV PRN PRN PRN Reason: LINE FLUSH Review of Systems All systems: negative Physical Examination Vital signs: Vital Signs Temp Pulse Resp BP Pulse Ox 98 F 105 H 18 100/58 100 12/06/17 12:33 12/06/17 12:33 12/06/17 12:33 12/06/17 12:33 12/06/17 12:33 General appearance: no acute distress, alert Eyes: non-icteric ENT: oropharynx moist Neck: supple Effort: normal Ascultation: Bilateral: clear Cardiovascular: regular rate and rhythm (no mrg) Gastrointestinal: normoactive bowel sounds, soft, non-tender, non-distended Integumentary: normal Extremities: no cyanosis, no edema, pink and warm Musculoskeletal: no deformities normal mental status, non-focal exam, pupils equal and round, CN II-XII normal mood appropriate, affect normal Results - Laboratory Findings CBC and BMP: 12/07/17 03:51 12/07/17 09:47 Abnormal lab findings: Abnormal Labs 12/06/17 12/06/17 12/06/17 14:42 14:42 15:01 WBC RBC 6.32 H Hgb 18.7 H Hct 55.6 H MCHC [place] % (Auto) [place] # Seg Neutrophils % 82.5 H Seg Neutrophils # 8.6 H VBG pH Sodium 136 L Potassium 5.7 H Chloride 86.0 L Carbon Dioxide 12 L BUN 27 H Glucose 534 H* POC Glucose Hemoglobin A1c 13.3 H Calcium 10.4 H Phosphorus Magnesium Total Protein 8.5 H Albumin 12/06/17 12/06/17 12/06/17 15:53 15:53 17:33 WBC RBC Hgb Hct MCHC [place] % (Auto) [place] # Seg Neutrophils % Seg Neutrophils # VBG pH 7.102 L* Sodium Potassium Chloride Carbon Dioxide BUN Glucose POC Glucose 434 H Hemoglobin A1c Calcium Phosphorus 8.10 H Magnesium 2.60 H Total Protein Albumin 12/06/17 12/06/17 12/06/17 18:36 19:56 21:36 WBC RBC Hgb Hct MCHC [place] % (Auto) [place] # Seg Neutrophils % Seg Neutrophils # VBG pH Sodium 128 L D Potassium Chloride 90.0 L Carbon Dioxide BUN 25 H Glucose 348 H POC Glucose 306 H 294 H Hemoglobin A1c Calcium 7.9 L D Phosphorus Magnesium Total Protein Albumin 12/06/17 12/06/1718 22:13 23:05 23:34 WBC RBC Hgb Hct MCHC [place] % (Auto) [place] # Seg Neutrophils % Seg Neutrophils # VBG pH Sodium 128 L Potassium Chloride 92.7 L Carbon Dioxide 20 L BUN 24 H Glucose 342 H POC Glucose 338 H 293 H Hemoglobin A1c Calcium 7.7 L Phosphorus Magnesium Total Protein Albumin 12/07/17 12/07/17 12/07/17 00:05 01:16 02:01 WBC RBC Hgb Hct MCHC [place] % (Auto) [place] # Seg Neutrophils % Seg Neutrophils # VBG pH Sodium Potassium Chloride Carbon Dioxide BUN Glucose POC Glucose 339 H 213 H 202 H Hemoglobin A1c Calcium Phosphorus Magnesium Total Protein Albumin 12/07/17 12/07/17 12/07/17 03:14 03:51 03:51 WBC 14.1 H RBC Hgb Hct MCHC 36 H [place] % (Auto) 9.7 H [place] # 1.4 H Seg Neutrophils % Seg Neutrophils # 8.7 H VBG pH Sodium 133 L Potassium 3.5 L Chloride Carbon Dioxide BUN 21 H Glucose 131 H POC Glucose 142 H Hemoglobin A1c Calcium 7.9 L Phosphorus Magnesium Total Protein 5.2 L D Albumin 3.3 L 12/07/17 12/07/17 12/07/17 04:07 07:15 09:47 WBC RBC Hgb Hct MCHC [place] % (Auto) [place] # Seg Neutrophils % Seg Neutrophils # VBG pH Sodium 133 L Potassium Chloride 97.9 L Carbon Dioxide 19 L BUN 21 H Glucose 517 H* POC Glucose 145 H 194 H Hemoglobin A1c Calcium 7.8 L Phosphorus Magnesium Total Protein Albumin Assessment and Plan Imp: 1. DKA 2. Volume depletion 3. Hyperkalemia 4. ROSALIND Rec: 1. Long-acting insulin + sliding scale prn; consider d/c on since he cannot afford more expensive formulations 2. D/c EtOH 3. IVFs 4. Okay to transfer to floor; will sign off once he leaves ICU Plan of care reviewed w/ patient, he understands/agrees
[2017-12-07] MEDS ORDERED: HumaLOG SUB-Q STA (12:06)
[2017-12-07] MEDS: HumuLIN R SUB-Q SCH ×3 (13:35→21:56)
[2017-12-07 16:55] LABS: BUN/Creatinine Ratio 16; Blood Urea Nitrogen 18 mg/dL (9-20); Hemolysis Index 12
[2017-12-07] MEDS: NACL 0.9% 1000 ML 1,000 ML IV SCH (18:01)
[2017-12-07 21:42] LABS: BUN/Creatinine Ratio 15; Blood Urea Nitrogen 17 mg/dL (9-20); Hemolysis Index 6
[2017-12-08] MEDS: NACL 0.9% 1000 ML 1,000 ML IV SCH ×2 (01:24→09:28)
[2017-12-08 07:20] LABS: BUN/Creatinine Ratio 18; Blood Urea Nitrogen 16 mg/dL (9-20); Hemolysis Index 17
[2017-12-08] MEDS: HumuLIN R SUB-Q SCH ×2 (08:47→12:09)
[2017-12-08] MEDS: HEPARIN SUB-Q SCH (09:16)
[2017-12-08] MEDS: PROTONIX PO SCH (09:16)
[2017-12-08 09:24] VITALS: BP 116/65
[2017-12-08] MEDS: SODIUM CHLORIDE FLUSH SYRINGE 10 ML IV SCH (12:09)
--- NOTE | 2017-12-08 13:02 | Discharge Summary ---
Providers - Providers Date of Admission: 12/06/17 21:24 Date of discharge: 12/08/17 Attending physician: TUCKER ARIAS 12/06/17 Consult to Case Management [CONS] Routine Services Needed at Discharge: Home Health Services [employer] Operator Notified:: yes 12/06/17 21:26 Consult to Dietitian/Nutrition [CONS] Routine Physician Instructions: Reason For Exam: Reason for Consult: Diet education 12/06/17 21:27 Consult to Dietitian/Nutrition [CONS] Routine Physician Instructions: Reason For Exam: DKA Reason for Consult: Nutrition Recommendations Reason for Consult: Diet education Consult to Physician [CONS] Routine Comment: Consulting Provider: ELLIOT THIBODEAUX Physician Instructions: Reason For Exam: DKA Primary care physician: ENGINEER AND GEOLOGIST Hospitalization Condition: Serious Hospital course: The patient is a 21-year-old male who presented to the ER for evaluation of abdominal pain, which is started 3-4 hours ago before presenting to the ER after drinking significant amount of alcohol. On initial workup in the ER patient noted to have blood glucose of 534 week to think with pH of 7.1 and CO2 12. He was admitted to intensive care unit with DKA protocol. He was initially on insulin drip and drip was discontinued after an hour gap was closed. He was transferred to floor, started on consistent carbohydrate diet, monitor blood glucose with quick check every before meals and at bedtime, placed on subcutaneous insulin NPH 70/30 20 units twice a day. He improved clinically, did not have any nausea vomiting and tolerated diet. He was discharged home in stable condition. He was also counseled for alcohol abuse. Discharge diagnosis: Diabetic ketoacidosis, resolved, a1c 13.3 Hyperkalemia, due to DKA, Now resolved Hyponatremia due to hyperglycemia, resolved. Gastritis with epigastric pain. Placed On Protonix Alcohol abuse, counseled for cessation Hospitalist Physical Gen appearance: Not in acute distress, lying in bed, HEENT:Normocephalic, atraumatic Neck:supple, no JVD Lungs: Clear to auscultation bilaterally, no crackles , no wheeze Heart: S1 and S2 regular, no murmurs, rubs or gallop Abdomen: soft, no epigastric tenderness, normal bowel sounds Ext: No edema, no clubbing, no cyanosis. Neuro: Awake, alert, oriented x 3. Moves all ext, no focal signs Psych:Normal mood Disposition: DC-01 TO HOME OR SELFCARE Time spent for discharge: 32 minutes Core Measure Documentation - Palliative Care Palliative Care/ Comfort Measures: Not Applicable - Core Measures Any of the following diagnoses?: none Exam - Constitutional Vitals: Temp Pulse Resp BP Pulse Ox 98.3 F 67 18 116/65 97 12/08/17 07:20 12/08/17 07:20 12/08/17 07:20 12/08/17 07:20 12/08/17 07:20 Plan Activity: advance as tolerated Weight Bearing Status: Weight Bear as Tolerated Diet: diabetic Follow up with: PRIMARY CARE, [Primary Care Provider] - 3-5 Days Prescriptions: Insulin NPH/Regular [NovoLIN 70/30] 20 unit SUB-Q BIDDIAB 60 Days units Pantoprazole [Protonix TAB] 40 mg PO QDAY #30 tablet
== END 2017-12-08 13:45 | disposition home or self-care (01) | DRG 638 ==
LOC: ED 12:30 → CC1 21:24 → 3A 12-07 14:15
PROVIDERS: ADMIT Internal Medicine; ATTEND Internal Medicine
DX: E10.10 Type 1 diabetes mellitus with ketoacidosis without coma (principal); E87.1 Hypo-osmolality and hyponatremia; N17.9 Acute kidney failure, unspecified; Z79.4 Long term (current) use of insulin; E86.0 Dehydration; E87.5 Hyperkalemia; K29.70 Gastritis, unspecified, without bleeding; F10.10 Alcohol abuse, uncomplicated
CPT/HCPCS: 36415; 80048; 80053; 81001; 82805; 82962; 83036; 83690; 83735; 84100; 85025; 96361; 96372; 96374; 96375; 96376; C9113; J1644; J1815; J1885; J2060; J2405; J7030

== ENCOUNTER 2019-07-19 13:21 | Emergency (ER) | payer SELFPAY ==
[2019-07-19 13:40] VITALS: BP 110/73
--- NOTE | 2019-07-19 13:45 | Emergency Department Report ---
Chief Complaint: Medical Clearance Stated Complaint: STD CHECK Time Seen by Provider: 07/19/19 13:44 - HPI History of Present Illness: here for STD check - ROS Review of Systems: denies d/c states he is just concerned and wants tested no testicular pain ambulatory non ill non toixic non febrile - Exam Vital Signs: Vital Signs 07/19/19 07/19/19 13:36 13:37 Temperature 97.3 F L Pulse Rate 73 72 Respiratory 18 Rate Blood Pressure 110/73 O2 Sat by Pulse 100 100 Oximetry Physical Exam: alert oriented nad vss no fever MSE screening note: Focused history and physical exam performed. Due to findings the following was ordered: ED Medical Decision Making - Medical Decision Making discussed routine std testing better done in outpt setting. pt agreed dc home with referrals ED Disposition for MSE Clinical Impression: STI (sexually transmitted infection) Disposition: MED SCREENING EXAM-LEFT Is pt being admited?: No Does the pt Need Aspirin: No Condition: Stable Referrals: [facility] [Outside] - 3-5 Days [facility] [Outside] - 3-5 Days [facility] [Outside] - 3-5 Days WILL PATEL MD [Staff Physician] - 3-5 Days Time of Disposition: 13:45
== END 2019-07-19 14:10 | disposition left against medical advice (07) ==
LOC: ED 13:21
DX: A64 Unspecified sexually transmitted disease (principal)

== ENCOUNTER 2020-08-08 09:25 | Inpatient (IN) | payer SELFPAY ==
[2020-08-08] MEDS ORDERED: SODIUM CHLORIDE 0.9% 1000 ML 1,000 ML IV ONE (10:22)
--- NOTE | 2020-08-08 10:25 | Emergency Department Report ---
HPI - General Chief Complaint: Hyperglycemia Time Seen by Provider: 08/08/20 10:05 - HPI HPI: This is a 24-year-old -Maced[place] male presents to the emergency department via EMS from home with complaint of uncontrolled blood sugar/diabetes. The caroline ent does have a history of insulin-dependent diabetes but has not been compliant with his medications due to financial restraints. The patient was previously placed on Lantus 24 units at night and NovoLog on a sliding scale. He has been unable to afford the Lantus and has been using [id number] Novolin from [employer]. Patient does not check his blood sugar regularly at home but says he knows it is high because it will often cause him to have nausea, vomiting, fatigue and shortness of breath. At the time of my examination the patient's only complaint is some fatigue. He does not have a primary care physician. He denies any fever, chest pain, cough, lower extremity swelling, abdominal pain. He has not taken anything for his symptoms prior to presentation today. No recent travel or sick contacts at home. No known exposure to anyone with COVID- 19. ED Past Medical Hx - Past Medical History Previous Medical History?: Yes Hx Diabetes: Yes - Surgical History Past Surgical History?: No - Social History Smoking Status: Current Every Day Smoker - Medications Home Medications: Home Medications Medication Instructions Recorded Confirmed Last Taken Type Insulin Glargine [Lantus VIAL] 18 units SUB-Q QHS units 07/15/18 Unknown Rx Insulin Regular, Human [HumuLIN R] 0 units SUB-Q ACHS units 07/15/18 Unknown Rx ED Review of Systems ROS: Stated complaint: HYPERGLYCEMIA Other details as noted in HPI Comment: All other systems reviewed and negative Constitutional: other (Fatigue). denies: chills, fever Eyes: denies: eye pain, vision change ENT: denies: ear pain, throat pain Respiratory: shortness of breath (Resolved, none currently). denies: cough Cardiovascular: denies: chest pain, palpitations Gastrointestinal: nausea, vomiting (Resolved, none currently). denies: abdominal pain Genitourinary: denies: dysuria, discharge Musculoskeletal: denies: back pain, arthralgia Skin: denies: rash, lesions Neurological: denies: headache, weakness Physical Exam - Physical Exam Vital Signs: Vital Signs 08/08/20 09:57 Temperature 98.2 F Pulse Rate 82 Respiratory 18 Rate Blood Pressure 126/82 Blood Pressure 126/82 [Right] O2 Sat by Pulse 100 Oximetry Physical Exam: GENERAL: The patient is well-developed well-nourished. HENT: Normocephalic. Atraumatic. Patient has moist mucous membranes. EYES: Extraocular motions are intact. NECK: Supple. Trachea is midline. CHEST/LUNGS: Clear to auscultation. There is no respiratory distress noted. HEART/CARDIOVASCULAR: Regular. There is no tachycardia. ABDOMEN: Abdomen is soft, nontender. Patient has normal bowel sounds. SKIN: Skin is warm and dry. NEURO: The patient is awake, alert, and oriented. The patient is cooperative. The patient has no focal neurologic deficits. Normal speech. MUSCULOSKELETAL: There is no tenderness or deformity. There is no limitation range of motion. ED Course Vital Signs 08/08/20 09:57 Temperature 98.2 F Pulse Rate 82 Respiratory 18 Rate Blood Pressure 126/82 Blood Pressure 126/82 [Right] O2 Sat by Pulse 100 Oximetry - Reevaluation(s) Reevaluation #1: 08/08/20 16:11 Lab Results 08/08/20 08/08/20 08/08/20 Range/Units 10:11 10:46 10:46 WBC 6.0 (4.5-11.0) K/mm3 RBC 5.10 H (3.65-5.03) M/mm3 Hgb 15.6 H (11.8-15.2) gm/dl Hct 45.8 H (35.5-45.6) % MCV 90 (84-94) fl MCH 31 (28-32) pg MCHC 34 (32-34) % RDW 14.1 (13.2-15.2) % Plt Count 292 (140-440) K/mm3 Add Manual Diff Complete Total Counted 100 Seg Neuts % (Manual) 79.0 H (40.0-70.0) % Lymphocytes % (Manual) 16.0 (13.4-35.0) % Monocytes % (Manual) 5.0 (0.0-7.3) % Nucleated RBC % Not Reportable Seg Neutrophils # Man 4.7 (1.8-7.7) K/mm3 Band Neutrophils # 0.0 K/mm3 Lymphocytes # (Manual) 1.0 L (1.2-5.4) K/mm3 Abs React Lymphs (Man) 0.0 K/mm3 Monocytes # (Manual) 0.3 (0.0-0.8) K/mm3 Eosinophils # (Manual) 0.0 (0.0-0.4) K/mm3 Basophils # (Manual) 0.0 (0.0-0.1) K/mm3 Metamyelocytes # 0.0 K/mm3 Myelocytes # 0.0 K/mm3 Promyelocytes # 0.0 K/mm3 Blast Cells # 0.0 K/mm3 WBC Morphology Not Reportable Hypersegmented Neuts Not Reportable Hyposegmented Neuts Not Reportable Hypogranular Neuts Not Reportable Smudge Cells Not Reportable Toxic Granulation Not Reportable Toxic Vacuolation Not Reportable Dohle Bodies Not Reportable Pelger-Huet Anomaly Not Reportable Claude Rods Not Reportable Platelet Estimate Consistent w auto Clumped Platelets Not Reportable Plt Clumps, EDTA Not Reportable Large Platelets Few Giant Platelets Not Reportable Platelet Satelliting Not Reportable Plt Morphology Comment Not Reportable RBC Morphology Not Reportable Dimorphic RBCs Not Reportable Polychromasia Not Reportable Hypochromasia Not Reportable Poikilocytosis Not Reportable Anisocytosis 1+ Microcytosis Not Reportable Macrocytosis Not Reportable Spherocytes Not Reportable Pappenheimer Bodies Not Reportable Sickle Cells Not Reportable Target Cells Not Reportable Tear Drop Cells Not Reportable Ovalocytes Not Reportable Helmet Cells Not Reportable [place] Bodies Not Reportable [place] Rings Not Reportable [place] Cells Not Reportable Bite Cells Not Reportable Crenated Cell Not Reportable Elliptocytes Not Reportable Acanthocytes (Spur) Not Reportable Rouleaux Not Reportable Hemoglobin C Crystals Not Reportable Schistocytes Not Reportable Malaria parasites Not Reportable Jorge Luis Bodies Not Reportable Hem Pathologist Commnt No VBG pH (7.320-7.420) Sodium 138 (137-145) mmol/L Potassium 4.0 (3.6-5.0) mmol/L Chloride 100.0 (98-107) mmol/L Carbon Dioxide 20 L (22-30) mmol/L Anion Gap 22 mmol/L BUN 20 (9-20) mg/dL Creatinine 1.2 (0.8-1.3) mg/dL Estimated GFR > 60 ml/min BUN/Creatinine Ratio 17 % Glucose 271 H (75-100) mg/dL POC Glucose 338 H (70-105) mg/dL Ketones Quantitative (Negative) Calcium 9.3 (8.4-10.2) mg/dL 08/08/20 08/08/20 Range/Units 10:46 10:46 WBC (4.5-11.0) K/mm3 RBC (3.65-5.03) M/mm3 Hgb (11.8-15.2) gm/dl Hct (35.5-45.6) % MCV (84-94) fl MCH (28-32) pg MCHC (32-34) % RDW (13.2-15.2) % Plt Count (140-440) K/mm3 Add Manual Diff Total Counted Seg Neuts % (Manual) (40.0-70.0) % Lymphocytes % (Manual) (13.4-35.0) % Monocytes % (Manual) (0.0-7.3) % Nucleated RBC % Seg Neutrophils # Man (1.8-7.7) K/mm3 Band Neutrophils # K/mm3 Lymphocytes # (Manual) (1.2-5.4) K/mm3 Abs React Lymphs (Man) K/mm3 Monocytes # (Manual) (0.0-0.8) K/mm3 Eosinophils # (Manual) (0.0-0.4) K/mm3 Basophils # (Manual) (0.0-0.1) K/mm3 Metamyelocytes # K/mm3 Myelocytes # K/mm3 Promyelocytes # K/mm3 Blast Cells # K/mm3 WBC Morphology Hypersegmented Neuts Hyposegmented Neuts Hypogranular Neuts Smudge Cells Toxic Granulation Toxic Vacuolation Dohle Bodies Pelger-Huet Anomaly Claude Rods Platelet Estimate Clumped Platelets Plt Clumps, EDTA Large Platelets Giant Platelets Platelet Satelliting Plt Morphology Comment RBC Morphology Dimorphic RBCs Polychromasia Hypochromasia Poikilocytosis Anisocytosis Microcytosis Macrocytosis Spherocytes Pappenheimer Bodies Sickle Cells Target Cells Tear Drop Cells Ovalocytes Helmet Cells [place] Bodies [place] Rings Milagro Cells Bite Cells Crenated Cell Elliptocytes Acanthocytes (Spur) Rouleaux Hemoglobin C Crystals Schistocytes Malaria parasites Jorge Luis Bodies Hem Pathologist Commnt VBG pH 7.278 L (7.320-7.420) Sodium (137-145) mmol/L Potassium (3.6-5.0) mmol/L Chloride (98-107) mmol/L Carbon Dioxide (22-30) mmol/L Anion Gap mmol/L BUN (9-20) mg/dL Creatinine (0.8-1.3) mg/dL Estimated GFR ml/min BUN/Creatinine Ratio % Glucose (75-100) mg/dL POC Glucose (70-105) mg/dL Ketones Quantitative Moderate (Negative) Calcium (8.4-10.2) mg/dL ED Medical Decision Making - Lab Data Result diagrams: 08/08/20 10:46 08/08/20 10:46 - Medical Decision Making This patient presents to the emergency department with a complaint of uncontrolled diabetes mellitus. The patient previously had some generalized weakness/fatigue, nausea and vomiting. Patient does appear to be in diabetic ketoacidosis with venous acidosis, elevated anion gap and serum ketones found. He has been given IV fluid resuscitation, a bolus of IV insulin, and has been started on an insulin drip. Patient will be admitted to the ICU and has been accepted by the hospitalist, Dr. Enriquez. Critical Care Time: Yes Critical care time in (mins) excluding proc time.: 31 Critical care attestation.: If time is entered above; I have spent that time in minutes in the direct care of this critically ill patient, excluding procedure time. Critical care time was spent on this patient during his initial evaluation, multiple reevaluations, ordering and interpretation of labs, IV insulin bolus and drip for his DKA, IV fluid resuscitation, discussion with hospitalist service. Critical Care Time: 31 minutes ED Disposition Clinical Impression: Diabetic keto-acidosis Qualifiers: Diabetes mellitus type: type 1 Diabetes mellitus complication detail: without coma Qualified Code(s): E10.10 - Type 1 diabetes mellitus with ketoacidosis without coma Uncontrolled diabetes mellitus Qualifiers: Diabetes mellitus type: type 1 Glycemic state: with hyperglycemia Qualified Code(s): E10.65 - Type 1 diabetes mellitus with hyperglycemia Disposition: OP ADMIT IP TO THIS HOSP Is pt being admited?: Yes Condition: Serious Time of Disposition: 12:42
[2020-08-08 11:18] LABS: Hematocrit 45.8 % (35.5-45.6); Hemoglobin 15.6 gm/dl (11.8-15.2); Mean Corpuscular HGB Conc 34 % (32-34); Mean Corpuscular Volume 90 fl (84-94); Platelet Count 292 K/mm3 (140-440); Red Cell Distribution Width 14.1 % (13.2-15.2)
[2020-08-08 11:34] LABS: BUN/Creatinine Ratio 17; Blood Urea Nitrogen 20 mg/dL (9-20); Calcium 9.3 mg/dL (8.4-10.2); Hemolysis Index 11
[2020-08-08] MEDS ORDERED: INSULIN REGULAR, HUMAN 100 UNIT/ML 3ML VIAL IV ONE (11:35)
[2020-08-08] MEDS ORDERED: INSULIN REGULAR, HUMAN 100 UNITS/1 ML ONE (11:57)
[2020-08-08] MEDS ORDERED: INSULIN REGULAR, HUMAN 100 UNITS in SODIUM CHLORIDE 0.9% 99 ML IV SCH (13:00)
[2020-08-08 13:09] LABS: Total Cells Counted 100
[2020-08-08 13:10] LABS: Anisocytosis 1+; Large Platelets Few; Platelet Estimate Consistent w Auto
--- NOTE | 2020-08-08 15:57 | History and Physical Report ---
History of Present Illness Date of examination: 08/08/20 Date of admission: 08/08/20 12:43 History of present illness: 24-year-old -[place]ine[place] male presents to the emergency department via EMS from home with complaint of uncontrolled blood sugar/diabetes. He reports he uses lantus and novolin at home and ran out of insulin due to insurance issues. He now uses over the counter insulin which he obtains from [facility]. In the ED, he was noted to have metabolic acidosis with elevated anion gap. He was started on insulin and now being admitted for evaluation. Past History Past Medical History: diabetes Past Surgical History: No surgical history Social history: no significant social history Family history: no significant family history Medications and Allergies Allergies Allergy/AdvReac Type Severity Reaction Status Date / Time No Known Allergies Allergy Unverified 03/25/17 14:31 Home Medications Medication Instructions Recorded Confirmed Last Taken Type Insulin Glargine [Lantus VIAL] 18 units SUB-Q QHS units 07/15/18 Unknown Rx Insulin Regular, Human [HumuLIN R] 0 units SUB-Q ACHS units 07/15/18 Unknown Rx Active Meds: Active Medications Insulin Human Regular 100 (units/ Sodium Chloride) 100 mls @ 1 mls/hr IV TITR CASIMIRO; Protocol Last Titration: 08/08/20 15:01 Dose: 3 units/hr, 3 mls/hr Documented by: Sodium Chloride (Sodium Chloride 0.9% 10 Ml Flush Syringe) 10 ml IV BID CASIMIRO Sodium Chloride (Sodium Chloride 0.9% 10 Ml Flush Syringe) 10 ml IV PRN PRN PRN Reason: LINE FLUSH Review of Systems Constitutional: lethargy Exam - Constitutional Vitals: Temp Pulse Resp BP Pulse Ox 98.2 F 86 18 126/82 100 08/08/20 09:57 08/08/20 09:57 08/08/20 10:26 08/08/20 09:57 08/08/20 10:26 General appearance: Present: no acute distress, well-nourished - EENT Eyes: Present: PERRL ENT: hearing intact, clear oral mucosa - Neck Neck: Present: supple, normal ROM - Respiratory Respiratory effort: normal Respiratory: bilateral: CTA - Cardiovascular Heart Sounds: Present: S1 & S2. Absent: rub, click - Extremities Extremities: pulses symmetrical, No edema Peripheral Pulses: within normal limits - Abdominal General gastrointestinal: Present: soft, non-tender, non-distended, normal bowel sounds Male genitourinary: Present: normal - Integumentary Integumentary: Present: clear, warm, dry - Musculoskeletal Musculoskeletal: gait normal, strength equal bilaterally - Psychiatric Psychiatric: appropriate mood/affect, intact judgment & insight - Neurologic Neurologic: CNII-XII intact, moves all extremities Results - Labs CBC & Chem 7: 08/08/20 10:46 08/08/20 10:46 Labs: Laboratory Last Values WBC 6.0 K/mm3 (4.5-11.0) 08/08/20 10:46 RBC 5.10 M/mm3 (3.65-5.03) H 08/08/20 10:46 Hgb 15.6 gm/dl (11.8-15.2) H 08/08/20 10:46 Hct 45.8 % (35.5-45.6) H 08/08/20 10:46 MCV 90 fl (84-94) 08/08/20 10:46 MCH 31 pg (28-32) 08/08/20 10:46 MCHC 34 % (32-34) 08/08/20 10:46 RDW 14.1 % (13.2-15.2) 08/08/20 10:46 Plt Count 292 K/mm3 (140-440) 08/08/20 10:46 Add Manual Diff Complete 08/08/20 10:46 Total Counted 100 08/08/20 10:46 Seg Neuts % (Manual) 79.0 % (40.0-70.0) H 08/08/20 10:46 Lymphocytes % (Manual) 16.0 % (13.4-35.0) 08/08/20 10:46 Monocytes % (Manual) 5.0 % (0.0-7.3) 08/08/20 10:46 Nucleated RBC % Not Reportable 08/08/20 10:46 Seg Neutrophils # Man 4.7 K/mm3 (1.8-7.7) 08/08/20 10:46 Band Neutrophils # 0.0 K/mm3 08/08/20 10:46 Lymphocytes # (Manual) 1.0 K/mm3 (1.2-5.4) L 08/08/20 10:46 Abs React Lymphs (Man) 0.0 K/mm3 08/08/20 10:46 Monocytes # (Manual) 0.3 K/mm3 (0.0-0.8) 08/08/20 10:46 Eosinophils # (Manual) 0.0 K/mm3 (0.0-0.4) 08/08/20 10:46 Basophils # (Manual) 0.0 K/mm3 (0.0-0.1) 08/08/20 10:46 Metamyelocytes # 0.0 K/mm3 08/08/20 10:46 Myelocytes # 0.0 K/mm3 08/08/20 10:46 Promyelocytes # 0.0 K/mm3 08/08/20 10:46 Blast Cells # 0.0 K/mm3 08/08/20 10:46 WBC Morphology Not Reportable 08/08/20 10:46 Hypersegmented Neuts Not Reportable 08/08/20 10:46 Hyposegmented Neuts Not Reportable 08/08/20 10:46 Hypogranular Neuts Not Reportable 08/08/20 10:46 Smudge Cells Not Reportable 08/08/20 10:46 Toxic Granulation Not Reportable 08/08/20 10:46 Toxic Vacuolation Not Reportable 08/08/20 10:46 Dohle Bodies Not Reportable 08/08/20 10:46 Pelger-Huet Anomaly Not Reportable 08/08/20 10:46 Claude Rods Not Reportable 08/08/20 10:46 Platelet Estimate Consistent w auto 08/08/20 10:46 Clumped Platelets Not Reportable 08/08/20 10:46 Plt Clumps, EDTA Not Reportable 08/08/20 10:46 Large Platelets Few 08/08/20 10:46 Giant Platelets Not Reportable 08/08/20 10:46 Platelet Satelliting Not Reportable 08/08/20 10:46 Plt Morphology Comment Not Reportable 08/08/20 10:46 RBC Morphology Not Reportable 08/08/20 10:46 Dimorphic RBCs Not Reportable 08/08/20 10:46 Polychromasia Not Reportable 08/08/20 10:46 Hypochromasia Not Reportable 08/08/20 10:46 Poikilocytosis Not Reportable 08/08/20 10:46 Anisocytosis 1+ 08/08/20 10:46 Microcytosis Not Reportable 08/08/20 10:46 Macrocytosis Not Reportable 08/08/20 10:46 Spherocytes Not Reportable 08/08/20 10:46 Pappenheimer Bodies Not Reportable 08/08/20 10:46 Sickle Cells Not Reportable 08/08/20 10:46 Target Cells Not Reportable 08/08/20 10:46 Tear Drop Cells Not Reportable 08/08/20 10:46 Ovalocytes Not Reportable 08/08/20 10:46 Helmet Cells Not Reportable 08/08/20 10:46 Lion-[place] Bodies Not Reportable 08/08/20 10:46 [place] Rings Not Reportable 08/08/20 10:46 Range Cells Not Reportable 08/08/20 10:46 Bite Cells Not Reportable 08/08/20 10:46 Crenated Cell Not Reportable 08/08/20 10:46 Elliptocytes Not Reportable 08/08/20 10:46 Acanthocytes (Spur) Not Reportable 08/08/20 10:46 Rouleaux Not Reportable 08/08/20 10:46 Hemoglobin C Crystals Not Reportable 08/08/20 10:46 Schistocytes Not Reportable 08/08/20 10:46 Malaria parasites Not Reportable 08/08/20 10:46 Jorge Luis Bodies Not Reportable 08/08/20 10:46 Hem Pathologist Commnt No 08/08/20 10:46 VBG pH 7.278 (7.320-7.420) L 08/08/20 10:46 Sodium 138 mmol/L (137-145) 08/08/20 10:46 Potassium 4.0 mmol/L (3.6-5.0) 08/08/20 10:46 Chloride 100.0 mmol/L (98-107) 08/08/20 10:46 Carbon Dioxide 20 mmol/L (22-30) L 08/08/20 10:46 Anion Gap 22 mmol/L 08/08/20 10:46 BUN 20 mg/dL (9-20) 08/08/20 10:46 Creatinine 1.2 mg/dL (0.8-1.3) 08/08/20 10:46 Estimated GFR > 60 ml/min 08/08/20 10:46 BUN/Creatinine Ratio 17 % 08/08/20 10:46 Glucose 271 mg/dL (75-100) H 08/08/20 10:46 POC Glucose 182 mg/dL (70-105) H 08/08/20 14:55 Ketones Quantitative Moderate (Negative) 08/08/20 10:46 Calcium 9.3 mg/dL (8.4-10.2) 08/08/20 10:46 Calabrese/IV: IV Catheter Type [Right INT / Saline Lock Forearm] Assessment and Plan - Patient Problems (1) Diabetic keto-acidosis Current Visit: Yes Status: Acute Qualifiers: Diabetes mellitus type: type 1 Diabetes mellitus complication detail: without coma Qualified Code(s): E10.10 - Type 1 diabetes mellitus with k etoacidosis without coma Plan to address problem: Continue insulin drip Repeat BMP. If anion gap closed, start on Novolin 70/30 Check hemoglobin A1c I spent more than 10 minutes educating patient on need to adhere to diabetic diet (2) Uncontrolled diabetes mellitus Current Visit: Yes Status: Acute Qualifiers: Diabetes mellitus type: type 1 Glycemic state: with hyperglycemia Qualified Code(s): E10.65 - Type 1 diabetes mellitus with hyperglycemia Plan to address problem: Continue insulin drip for now Check hemoglobin A1c (3) Dehydration Current Visit: No Status: Resolved Plan to address problem: Continue IV hydration
[2020-08-08] MEDS ORDERED: D5W/0.45% NACL/KCL 20 MEQ 20 MEQ/1,000 ML BAG IV SCH (16:00)
[2020-08-08] MEDS ORDERED: D5W/0.45% NACL/KCL 20 MEQ 20 MEQ/1,000 ML BAG IV ONE (16:07)
[2020-08-08 16:29] LABS: BUN/Creatinine Ratio 17; Blood Urea Nitrogen 15 mg/dL (9-20); Calcium 8.9 mg/dL (8.4-10.2); Hemolysis Index 23
[2020-08-08] MEDS ORDERED: NACL IV SCH (16:30)
[2020-08-08] MEDS ORDERED: D5W IV SCH (16:30)
[2020-08-08] MEDS ORDERED: POTASSIUM CHLORIDE IV SCH (16:30)
[2020-08-08 17:52] VITALS: BP 117/63
[2020-08-08] MEDS ORDERED: DEXTROSE 50% IN WATER (25GM) 50 ML SYRINGE IV PRN (18:44)
[2020-08-09] MEDS ORDERED: INSULIN NPH/REGULAR 70/30 INJ SUB-Q SCH (08:00)
--- NOTE | 2020-08-09 15:53 | Discharge Summary ---
Providers - Providers Date of Admission: 08/08/20 12:43 Date of discharge: 08/08/20 Attending physician: TIAN SOSA 08/08/20 15:51 Consult to Dietitian/Nutrition [CONS] Routine Physician Instructions: Reason For Exam: Reason for Consult: Diet education Primary care physician: WILLIAMS PALMA MD Hospitalization Condition: Serious Hospital course: 24-year-old -[place] male presents to the emergency department via EMS from home with complaint of uncontrolled blood sugar/diabetes. He reports he uses lantus and novolin at home and ran out of insulin due to insurance issues. He now uses over the counter insulin which he obtains from [facility]. In the ED, he was noted to have metabolic acidosis with elevated anion gap. He was started on insulin and now being admitted for evaluation. I spent more than 20 minutes counseling patient on need to monitor his blood glucose closely at home. He agrees with treatment. Overnight, patient signed AMA forms and left Disposition: [id number] LEFT AGAINST MED ADVICE - Discharge Diagnoses (1) Diabetic keto-acidosis Status: Acute Qualifiers: Diabetes mellitus type: type 1 Diabetes mellitus complication detail: without coma Qualified Code(s): E10.10 - Type 1 diabetes mellitus with ketoacidosis without coma (2) Uncontrolled diabetes mellitus Status: Acute Qualifiers: Diabetes mellitus type: type 1 Glycemic state: with hyperglycemia Qualified Code(s): E10.65 - Type 1 diabetes mellitus with hyperglycemia (3) Dehydration Status: Resolved Comment: Secondary to nausea vomiting and diarrhea and DKA Core Measure Documentation - Palliative Care Palliative Care/ Comfort Measures: Not Applicable - Core Measures Any of the following diagnoses?: none Exam - Constitutional Vitals: Temp Pulse Resp BP Pulse Ox 98.2 F 82 11 L 117/63 100 08/08/20 09:57 08/08/20 16:46 08/08/20 16:46 08/08/20 17:50 08/08/20 17:50 Plan Follow up with: PRIMARY CAREMD [Primary Care Provider] - 7 Days Forms: AMA Form
== END 2020-08-08 19:52 | disposition left against medical advice (07) | DRG 639 ==
LOC: ED 09:25 → CC1 12:43 → 4A 18:21
PROVIDERS: ADMIT Internal Medicine; ATTEND Internal Medicine
DX: E10.10 Type 1 diabetes mellitus with ketoacidosis without coma (principal); F17.200 Nicotine dependence, unspecified, uncomplicated; Z53.29 Procedure and treatment not carried out because of patient's decision for other reasons; E86.0 Dehydration; E10.65 Type 1 diabetes mellitus with hyperglycemia
CPT/HCPCS: 36415; 80048; 82010; 82805; 82962; 85007; 85025; 96365; G0378; J1815; J7030

== ENCOUNTER 2021-02-05 13:33 | Emergency (ER) | payer SELFPAY ==
[2021-02-05] MEDS ORDERED: DEXTROSE 50% IN WATER (25GM) 50 ML VIAL IV PRN (14:07)
--- NOTE | 2021-02-05 14:08 | Emergency Department Report ---
ED General Adult HPI - General Chief complaint: Hypoglycemia Stated complaint: HYPOGLYCEMIA PUI?: No Time Seen by Provider: 02/05/21 14:00 Source: patient, RN notes reviewed, old records reviewed Mode of arrival: Stretcher Limitations: No Limitations - History of Present Illness Initial comments: The patient was evaluated in the emergency department for symptoms described in the history of present illness. He/she was evaluated in the context of the global COVID-19 pandemic, which necessitated consideration that the patient might be at risk for infection with the virus that causes COVID-19. Institutional protocols and algorithms that pertain to the evaluation of patients at risk for COVID-19 are in a state of rapid change based on information released by regulatory bodies including the CDC and federal and state organizations. These policies and algorithms were followed during the patient's care in the emergency department. Please note that these policies, procedures and recommendations changed on a rapid basis. The patient is a 25-year-old gentleman who is not known to myself previously. He reports a history of diabetes, and only takes insulin. He does not take any oral medication. He presents to the ER today with a complaint of resolved hypoglycemia. He took his insulin last night, and ate only a small meal. He did not eat breakfast, or lunch today. He reports that his significant other felt like he was acting "altered" this morning, and thus contacted emergency medical services. The patient was found to have a glucose of 20 in the field. He was given dextrose, which improved his symptoms. The patient states he feels like he is back to his baseline. He specifically denies all physical pain, headache, neck pain, chest pain, abdominal pain, shortness of breath, urinary symptoms, and lightheadedness. There is no trauma His repeat Accu-Chek is 79. The patient denies all other complaints at this time, and reports that he feels like he is back to his baseline. Reports only taking insulin, and not taking any additional medications at this time. -: This afternoon Consistency: now resolved Improves with: medication Worsens with: none Associated Symptoms: denies other symptoms - Related Data Home Medications Medication Instructions Recorded Confirmed Last Taken Novolin 70-30 100 Unit/ml Vial 30 units SQ TID 02/05/21 02/05/21 02/04/21 30 Previous Rx's Medication Instructions Recorded Last Taken Type Potassium Chloride 20 meq PO BID #30 packet 02/05/21 Unknown Rx Allergies Allergy/AdvReac Type Severity Reaction Status Date / Time No Known Allergies Allergy Unverified 03/25/17 14:31 ED Review of Systems ROS: Stated complaint: HYPOGLYCEMIA Other details as noted in HPI Comment: All other systems reviewed and negative (Patient denies all symptoms after administration of glucose) ED Past Medical Hx - Past Medical History Previous Medical History?: Yes Hx Diabetes: Yes - Social History Smoking Status: Never Smoker - Medications Home Medications: Home Medications Medication Instructions Recorded Confirmed Last Taken Type Novolin 70-30 100 Unit/ml Vial 30 units SQ TID 02/05/21 02/05/21 02/04/21 History 30 Potassium Chloride 20 meq PO BID #30 packet 02/05/21 Unknown Rx ED Physical Exam - General Limitations: No Limitations General appearance: alert, in no apparent distress - Head Head exam: Present: atraumatic, normocephalic - Eye Eye exam: Present: normal appearance, EOMI. Absent: nystagmus - ENT ENT exam: Present: normal exam, normal orophraynx, mucous membranes moist, normal external ear exam - Neck Neck exam: Present: normal inspection, full ROM. Absent: tenderness, meningismus - Respiratory Respiratory exam: Present: normal lung sounds bilaterally. Absent: respiratory distress, wheezes, rales, rhonchi, stridor, decreased breath sounds - Cardiovascular Cardiovascular Exam: Present: regular rate, normal rhythm, normal heart sounds. Absent: bradycardia, tachycardia, irregular rhythm, systolic murmur, diastolic murmur, rubs, gallop - GI/Abdominal GI/Abdominal exam: Present: soft. Absent: distended, tenderness, guarding, rebound, rigid, pulsatile mass - Rectal Rectal exam: Present: deferred - Extremities Exam Extremities exam: Present: normal inspection, full ROM, other (2+ pulses noted in the bilateral upper and lower extremities. There is no palpable cord. negative Homans sign. Muscular compartments are soft. The pelvis is stable.). Absent: pedal edema, calf tenderness - Back Exam Back exam: Present: normal inspection, full ROM. Absent: tenderness, CVA tenderness (R), CVA tenderness (L), paraspinal tenderness, vertebral tenderness - Neurological Exam Neurological exam: Present: alert, oriented X3, other (No facial droop. Tongue midline. Extraocular movements intact bilaterally. Facial sensation intact to light touch in V1, V2, V3 distribution bilaterally. 5 and a 5 strength in 4 extremities. Sensation intact to light touch in 4 extremities.). Absent: motor sensory deficit - Psychiatric Psychiatric exam: Present: normal affect, normal mood - Skin Skin exam: Present: warm, dry, intact, normal color. Absent: rash ED Course Vital Signs 02/05/21 02/05/21 02/05/21 13:45 14:04 14:25 Temperature 98 F Pulse Rate 65 56 L Respiratory 16 16 15 Rate Blood Pressure 138/93 135/88 O2 Sat by Pulse 98 100 Oximetry 02/05/21 02/05/21 02/05/21 14:30 14:46 15:30 Temperature Pulse Rate 60 63 64 Respiratory 13 17 16 Rate Blood Pressure 132/96 130/97 O2 Sat by Pulse 100 100 98 Oximetry 02/05/21 02/05/21 02/05/21 16:00 17:00 17:46 Temperature Pulse Rate 70 73 72 Respiratory 17 19 20 Rate Blood Pressure 125/87 126/89 126/89 O2 Sat by Pulse 99 100 100 Oximetry 02/05/21 18:30 Temperature Pulse Rate 79 Respiratory 14 Rate Blood Pressure 123/79 O2 Sat by Pulse 100 Oximetry - Reevaluation(s) Reevaluation #1: 02/05/21 14:16 Differential diagnosis, including but not limited to: Hypoglycemia, now resolved, thyroid derangement, renal derangement, hepatic derangement, inadequate oral intake Assessment and plan: 25-year-old gentleman, who was afebrile, with reassuring vital signs, who is clinically sober at this time with a GCS of 15, who does not take oral hypoglycemic medications, only on insulin, presenting with resolved hy poglycemia, after administering insulin last night (does not recall specific dose, time of administration, or specific formulation of insulin) without eating breakfast or lunch this morning, now back to his baseline. Physical exam benign and unremarkable. Patient counseled to make certain to eat at least 3-4 meals a day. We will feed him at this time, and check appropriate laboratory studies. Reassess after initial data points. 02/05/21 14:19 The patient does report that he feels comfortable to be discharged, he is able to monitor his glucose at home, has testing strips, and also reports that significant other at home is able to watch over him as well. 02/05/21 15:46 Patient's laboratory studies demonstrate evidence of hemoconcentration, dehydration, as well as resolved hypoglycemia, and hypokalemia. IV fluids ordered, potassium supplementation ordered, repeat Accu-Chek acceptable at this time. Patient resting comfortably at this time, and he is in no acute distress. 02/05/21 18:51 Final reassessment and reevaluation. Patient resting comfortably at this time, and in no acute distress. Repeat glucose within normal limits. Minimal hyponatremia, asymptomatic, likely secondary to dilution from D5 half-normal as well as lactated Ringer's. Slight decrease in chloride, likely secondary to the aforementioned. Discussed patient's history, physical, laboratory studies with nephrology on- call, Dr. Tawanda Tee Recommends 500 cc of normal saline, and discharged with oral supplementation. Patient will likely self correct. Patient has been observed in this ER for a few hours without clinical decompensation. Discharge with outpatient follow-up. Return precautions are reviewed. ED Medical Decision Making - Lab Data Result diagrams: 02/05/21 14:18 02/05/21 17:22 Vital Signs 02/05/21 02/05/21 13:45 14:04 Temperature 98 F Pulse Rate 65 56 L Respiratory 16 16 Rate Blood Pressure 138/93 135/88 O2 Sat by Pulse 98 100 Oximetry Critical care attestation.: If time is entered above; I have spent that time in minutes in the direct care of this critically ill patient, excluding procedure time. ED Disposition Clinical Impression: Hypoglycemia, Dehydration Disposition: DC-01 TO HOME OR SELFCARE Is pt being admited?: No Does the pt Need Aspirin: No Condition: Good Instructions: Preventing Hypoglycemia, Hypoglycemia Additional Instructions: Please continue current outpatient medications. Please make certain to eat a diabetic appropriate diet, carbohydrate consistent diet. Patient may reference the [place] [employer] website for recommendations on what to eat and how much to eat. Please make certain to eat food when taking insulin. Please follow-up with your primary care doctor within the next 5 to 7 days. Please return to the emergency room right away with new pain, worsened pain, migration of pain, projectile vomiting, change in mental status, confusion, inability to tolerate liquid feeds, new, worsened or different symptoms not present on the initial emergency room evaluation. Please make certain to drink at least 3 to 4 cups of water per day. Please make certain to consume an appropriate diabetic diet. Please follow-up in 2 to 3 days for repeat checkup/evaluation with your primary care doctor. Patient may return to this emergency room for a checkup if he so desires. Laboratory studie s demonstrated mild decrease in sodium, and chloride levels, likely secondary to dehydration. Consume a minor to moderate amount of salt over the next week. These should be followed up as an outpatient. Prescriptions: Potassium Chloride 20 meq PO BID #30 packet Referrals: WILL PATEL MD [Staff Physician] - 3-5 Days [facility] [Provider Group] - 3-5 Days Forms: Work/School Release Form(ED)
[2021-02-05 14:27] LABS: Hematocrit 45.9 % (35.5-45.6)
[2021-02-05 14:53] LABS: Alanine Aminotransferase 35 units/L (7-56); Albumin 4.6 g/dL (3.9-5); BUN/Creatinine Ratio 19; Blood Urea Nitrogen 21 mg/dL (9-20); Calcium 10.2 mg/dL (8.4-10.2); Hemolysis Index 6
[2021-02-05] MEDS ORDERED: POTASSIUM CHLORIDE ER 20 MEQ TAB PO ONE (14:58)
[2021-02-05] MEDS ORDERED: D5W/0.45% NACL 1,000 ML IV SCH (15:00)
[2021-02-05] MEDS ORDERED: LACTATED RINGERS 2,000 ML IV ONE (15:45)
[2021-02-05] MEDS: POTASSIUM CHLORIDE 10 MEQ 10 MEQ/100 ML BAG IV SCH ×2 (16:18→17:35)
[2021-02-05 18:28] LABS: BUN/Creatinine Ratio 19; Blood Urea Nitrogen 21 mg/dL (9-20); Calcium 9.7 mg/dL (8.4-10.2); Hemolysis Index 75
[2021-02-05] MEDS ORDERED: SODIUM CHLORIDE 0.9% 500 ML 500 ML IV ONE (18:48)
[2021-02-05 19:10] VITALS: BP 134/90
== END 2021-02-05 21:14 | disposition home or self-care (01) ==
LOC: ED 13:33
DX: E11.649 Type 2 diabetes mellitus with hypoglycemia without coma (principal); E86.0 Dehydration; Z98.890 Other specified postprocedural states; Z79.899 Other long term (current) drug therapy
CPT/HCPCS: 36415; 80048; 80053; 82962; 83735; 84443; 85014; 85018; 85049; 96360; 96361; 99284; J3480; J7040; J7120; 80320; 96366; G0480